=== PATIENT | female | born 1990 | race Caucasian/White ===

== ENCOUNTER 2018-07-29 09:38 | Outpatient (CLI) | payer OTHER ==
[~2018-07-29 09:38] MED LIST: DOXYCYCLINE HY100 MG PO; TYLENOL-CODEINE1 TAB PO
== END 2018-07-29 17:00 | disposition home or self-care (01) ==
LOC: SONOGRAMA 09:38
DX: N84.0 Polyp of corpus uteri (principal)

== ENCOUNTER 2019-11-01 17:11 | Inpatient (IN) | payer OTHER ==
[~2019-11-01] VITALS: Ht 162.6 cm; Wt 66.7 kg
[2019-11-01] MEDS ORDERED: PRENATAL CAPLE1 EAC1 PO (21:00)
== END 2019-11-03 11:57 | disposition home or self-care (01) | DRG 805 ==
LOC: LDR 17:11 → OB/GYN 17:11 → LDR 17:28 → O/R 11-02 10:03 → OB/GYN 11-02 10:30
PROVIDERS: ADMIT Obstetrics & Gynecology
PROC: 10E0XZZ Delivery of Products of Conception, External Approach (ICD-10-PCS; principal; 2019-11-01)
PROC: 10D17Z9 Manual Extraction of Products of Conception, Retained, Via Natural or Artificial Opening (ICD-10-PCS; 2019-11-01)
PROC: 3E033VJ Introduction of Other Hormone into Peripheral Vein, Percutaneous Approach (ICD-10-PCS; 2019-11-01)
PROC: 3E0P7VZ Introduction of Hormone into Female Reproductive, Via Natural or Artificial Opening (ICD-10-PCS; 2019-11-01)
DX: O02.1 Missed abortion (principal); O41.1220 Chorioamnionitis, second trimester, not applicable or unspecified; Z37.1 Single stillbirth; O72.2 Delayed and secondary postpartum hemorrhage; O42.012 Preterm premature rupture of membranes, onset of labor within 24 hours of rupture, second trimester; F43.29 Adjustment disorder with other symptoms; Z3A.18 18 weeks gestation of pregnancy